=== PATIENT | female | born 1955 | race Two or more races ===

== ENCOUNTER 2017-01-28 14:40 | Emergency (ER) | payer MEDICAID ==
--- NOTE | 2017-01-28 14:59 | ED Physician Chart ---
ED Chief Complaint/HPI - Patient Information Date Seen:: 01/28/17 Time Seen:: 14:52 Chief Complaint:: low back pain History of Present Illness:: 61 yo female had chronic back pain for many years. The pain also radiated to bilateral lower extremities with left side worse than the right side. The patient reported "pinched nerve" in the lumbar spine, but did not know the exact levels. The patient also reported left calf pain due to possible "partial torn tendon". The patient also has urinary frequency and urgency. ED Review of Systems - Review of Systems General/Constitutional: No fever, No chills Skin: No skin lesions Head: No headache Eyes: No loss of vision ENT: No earache Neck: Neck pain Cardio Vascular: No chest pain Pulmonary: No SOB GI: No nausea, No vomiting G/U: No dysuria Musculoskeletal: Back pain ED Past Medical History - Past Medical History Past Medical History: HTN Family History: Diabetes Melitus Social History: Non Smoker, No Alcohol, No Drug Use Surgical History: other (tubal ligation) Family Medical History - Family Member Mother History Unknown: Yes ED Physical Exam - Physical Examination General/Constitutional: Awake, Alert Head: Atraumatic Eyes: PERRL, EOMI Skin: No skin lesions ENMT: Nasal exam nl Neck: Full ROM w/o pain Respiratory: Clear to Auscultation, No Wheeze/Rhonchi/Rales Cardio Vascular: RRR, No murmur, gallop, rubs, NL S1 S2 GI: No tenderness/rebounding/guarding Other comments:: Bilateral CVA percussion tenderness, left side worse than the right side Extremities: normal strength in all extremities Other Extremities comments:: Lumbar region tenderness Neuro/Psych: DTR's symmetric Other Neuro/Psych comments:: Right patellar reflex 2+, left patellar reflex 1+ ED Labs/Radiology/EKG Results - Radiology Results Results: Lumbar spine X ray: degenerative lumbar spine disease with mild L3 on L4 spondylolisthesis. ED Assessment - Assessment General Assessment: 61 yo female with degenerative lumbar spine disease with possible left radiculopathy. She also has UTI without sepsis. Critical Care Time: 45 min Excludes all billable procedures: Yes This condition life threatening/high prob of deterioration: No Assessment/Comments:: CBC, CMP, UA, urine drug screen Lumbar spine X ray Rocephin 1gm x 1 Toradol 30mg iv x 1 Bactrim DS Bid x 5 days F/u PCP with MRI lumbar spine, physical therapy, and pain management ED Septic Shock - . Is Septic Shock (SBP<90, OR Lactate>4 mmol\\L) present?: No ED Reassessment (Disposition) - Reassessment Reassessment Condition:: Improved - Aftercare/Follow up Instructions Aftercare/Follow-Up Instructions:: Counseled pt regarding lab results/diagnosis & need follow up, Refer to Discharge Instructions - Patient Disposition Discharge/Transfer:: Home ED Discharge Plan - Patient Disposition Admit/Discharge/Transfer: PT DISCHARGED HOME Condition at Disposition: Improved Prescriptions: Sulfamethoxazole/TMP [Bactrim Ds] 1 tab PO BID #10 tab Instructions: Urinary Tract Infection, [id number], Lumbosacral Radiculopathy Additional Instructions: Pt. to DC home with prescription. follow-up with primary physician.
[2017-01-28 15:35] LABS: URINE BILIRUBIN NEGATIVE (NEGATIVE); URINE BLOOD NEGATIVE (NEGATIVE); URINE GLUCOSE (UA) NEGATIVE (NEGATIVE); URINE KETONE NEGATIVE (NEGATIVE); URINE PH 5.5 (4.6 - 8.0); URINE PROTEIN NEGATIVE (NEGATIVE); URINE UROBILINOGEN 0.2 E.U./dL (0.2 - 1.0)
[2017-01-28 15:40] LABS: URINE BACTERIA FEW /hpf (NONE SEEN); URINE COLOR YELLOW; URINE EPITHELIAL CELLS OCCASIONAL /lpf (FEW); URINE RBC NONE SEEN /hpf (0-5)
[2017-01-28 15:43] LABS: AMPHETAMINE URINE NEGATIVE (NEGATIVE); BARBITURATES URINE NEGATIVE (NEGATIVE); METHADONE URINE NEGATIVE (NEGATIVE)
[2017-01-28 16:03] LABS: % BASOPHILS 0.7 % (0.0-2.0); % EOSINOPHILS 5.9 % (0.0-5.0); % LYMPHOCYTES 37.6 % (20.0-50.0); % MONOCYTES 7.5 % (2.0-10.0); % NEUTROPHILS 48.3 % (40.0-80.0); HEMATOCRIT 35.4 % (41.0-60); MEAN CORPUSCULAR HEMOGLOBIN 30.9 pg (27.0-31.0); MEAN PLATELET VOLUME 7.8 fl; NEUTROPHILE ABSOLUTE 4.6 Th/cmm (1.8-8.0); PLATELET COUNT 257 Th/cmm (150-400); RED BLOOD COUNT 3.89 Mil/cmm (3.80-5.10); RED CELL DISTRIBUTION WIDTH 12.8 % (11.5-20.0); WHITE BLOOD COUNT 9.6 Th/cmm (4.8-10.8)
[2017-01-28 16:24] LABS: ALB/GLOB RATIO 1.7 (1.0-1.8); BILIRUBIN,TOTAL 0.4 mg/dL (0.3-1.0); BUN/CREATININE RATIO 10.8; CALCIUM SERUM 9.4 mg/dL (8.6-10.3); CARBON DIOXIDE 25.3 mEq/L (21.0-31.0); CREATININE - SERUM 1.3 mg/dL (0.6-1.2); POTASSIUM SERUM 3.6 mEq/L (3.5-5.1)
[2017-01-28 16:29] LABS: ANION GAP 10.3 (7.0-16.0)
[2017-01-28] MEDS ORDERED: Sulfamethoxazole/TMP 800/160mg Tab PO ONE (16:43)
[2017-01-28] MEDS ORDERED: cefTRIAXone 1 GM in Sodium Chloride 0.9% 50 ML IV ONE (17:20)
--- NOTE | 2017-01-29 09:11 | Diagnostic Imaging Report ---
Lumbar spine HISTORY: Pain There diffuse degenerative changes with hypertrophic spur formation noted about the endplates of all lumbar vertebrae. There is narrowing of the L2-3, 34, 45, and L5-S1 disc spaces. There is mild spondylolisthesis of L3 on L4. Marked hypertrophic degenerative changes noted about the posterior elements particularly at L2-3, and L34 on the right and L4-5 on the left. Mild scoliosis of the lumbar spine convexity to the left. IMPRESSION: 1. No acute abnormalities 2. Mild scoliosis along with relatively severe degenerative changes.
== END 2017-01-28 18:47 | disposition home or self-care (01) ==
LOC: ER 14:40
DX: M51.36 Other intervertebral disc degeneration, lumbar region (principal); I10 Essential (primary) hypertension; E11.9 Type 2 diabetes mellitus without complications
CPT/HCPCS: 99291; 96365; 96375; 72100; 36415; 80307; 85025; 81001; 80053; J1885; J0696; Z7502

== ENCOUNTER 2017-07-01 09:06 | Emergency (ER) | payer MEDICAID ==
--- NOTE | 2017-07-01 09:44 | ED Physician Chart ---
ED Chief Complaint/HPI - Patient Information Date Seen:: 07/01/17 Time Seen:: 09:44 Chief Complaint:: Low back pain History of Present Illness:: 61 yo female had urinary burning, urgency and frequency for 1 week. She had 2 painful ulcers on the genital area. She denied having sex with for 10 years. She also had low back pain for 30 years with pain radiating to left lower extremity. She had GERD and gastric ulcers. Allergies:: Allergies Allergy/AdvReac Type Severity Reaction Status Date / Time No Known Allergies Allergy Verified 01/28/17 14:58 Vitals:: Vital Signs - 8 hr 07/01/17 09:12 Temp 97.8 F HR 74 RR 16 BP 128/64 O2 Sat % 94 ED Review of Systems - Review of Systems General/Constitutional: No fever Skin: Skin lesions Head: No headache Eyes: No pain ENT: No nasal drainage Neck: No neck pain Cardio Vascular: No chest pain Pulmonary: No SOB GI: No nausea, No vomiting G/U: Dysuria, Frequency Reconstructive Dentist: Other (genital ulcers) Musculoskeletal: No bone or joint pain Neurological: No focal symptoms ED Past Medical History - Past Medical History Past Medical History: HTN, DM, Asthma/COPD, PUD/GERD, Other (Low back pain) Social History: Non Smoker, No Alcohol, No Drug Use Surgical History: other (bilateral feet surgeries, bilateral tubal ligation) Family Medical History - Family Member Mother History Unknown: Yes ED Physical Exam - Physical Examination General/Constitutional: Awake, Alert Head: Atraumatic Eyes: PERRL Skin: No ecchymosis ENMT: Nasal exam nl Neck: No nuchal rigidity Respiratory: Clear to Auscultation, No Wheeze/Rhonchi/Rales Cardio Vascular: RRR, No murmur, gallop, rubs, NL S1 S2 GI: No tenderness/rebounding/guarding Other comments:: Left CVA tenderness. 2 ulcers within the left labia majora fold Neuro/Psych: Normal motor strength ED Labs/Radiology/EKG Results - Lab Results Results: Abnormal Lab Results 07/01/17 07/01/17 07/01/17 09:30 10:10 10:10 WBC 12.5 H RBC 3.97 Hgb 12.1 Hct 36.0 L MCV 90.7 MCH 30.5 MCHC Differential 33.6 RDW 12.5 Plt Count 295 MPV 6.8 Neutrophils % 58.6 Lymphocytes % 31.3 Monocytes % 5.3 Eosinophils % 3.8 Basophils % 1.0 Sodium 137 Potassium 3.9 Chloride 99 Carbon Dioxide 26.8 Anion Gap 15.1 BUN 31 H Creatinine 1.6 H Est GFR ( Amer) 42.3 Est GFR (Non-Af Amer) 34.9 BUN/Creatinine Ratio 19.4 Glucose 104 Whole Bld Lactic Acid Calcium 9.7 Total Bilirubin 0.4 AST 14 ALT 16 Alkaline Phosphatase 53 Total Protein 7.0 Albumin 4.1 Globulin 2.9 Albumin/Globulin Ratio 1.4 Urine Source RANDOM Urine Color YELLOW Urine Clarity CLEAR Urine pH 6.0 Ur Specific [place] 1.010 Urine Protein NEGATIVE Urine Glucose (UA) NEGATIVE Urine Ketones NEGATIVE Urine Blood NEGATIVE Urine Nitrate NEGATIVE Urine Bilirubin NEGATIVE Urine Urobilinogen 0.2 Ur Leukocyte Esterase SMALL H Urine RBC 0-2 Urine WBC 2-5 Ur Epithelial Cells MODERATE Urine Bacteria FEW 07/01/17 10:10 WBC RBC Hgb Hct MCV MCH MCHC Differential RDW Plt Count MPV Neutrophils % Lymphocytes % Monocytes % Eosinophils % Basophils % Sodium Potassium Chloride Carbon Dioxide Anion Gap BUN Creatinine Est GFR ( Amer) Est GFR (Non-Af Amer) BUN/Creatinine Ratio Glucose Whole Bld Lactic Acid 1.00 Calcium Total Bilirubin AST ALT Alkaline Phosphatase Total Protein Albumin Globulin Albumin/Globulin Ratio Urine Source Urine Color Urine Clarity Urine pH Ur Specific [place] Urine Protein Urine Glucose (UA) Urine Ketones Urine Blood Urine Nitrate Urine Bilirubin Urine Urobilinogen Ur Leukocyte Esterase Urine RBC Urine WBC Ur Epithelial Cells Urine Bacteria ED Assessment - Assessment General Assessment: Leukocytosis UTI Dehydration Genital ulcers Assessment/Comments:: CBC, CMP, HSV 1, 2 IgG UA Rocephin IV NS 1L IV bolus D/c home Ciprofloxacin 500mg bid #14 F/u PCP or return to ER if symptoms worsen ED Septic Shock - . Is Septic Shock (SBP<90, OR Lactate>4 mmol\L) present?: No - <6hrs of presentation: Vital Signs: Vital Signs - 8 hr 07/01/17 09:12 Temp 97.8 F HR 74 RR 16 BP 128/64 O2 Sat % 94 ED Reassessment (Disposition) - Reassessment Reassessment Condition:: Improved - Patient Disposition Discharge/Transfer:: Home ED Discharge Plan - Patient Disposition Prescriptions: Ciprofloxacin HCl [Cipro] 500 mg PO BID 7 Days #14 tab Instructions: Urinary Tract Infection, Dehydration, Adult
[2017-07-01 10:18] LABS: URINE MICROSCOPIC INDICATED? YES; URINE SOURCE RANDOM
[2017-07-01 10:19] LABS: % EOSINOPHILS 3.8 % (0.0-5.0); % LYMPHOCYTES 31.3 % (20.0-50.0); % MONOCYTES 5.3 % (2.0-10.0); % NEUTROPHILS 58.6 % (40.0-80.0); BASOPHILE ABSOLUTE 0.1 Th/cumm (0-0.2); EOSINOPHILE ABSOLUTE 0.5 Th/cmm (0.1-0.4); HEMOGLOBIN 12.1 gm/dL (12-16); LYMPHOCYTE ABSOLUTE 3.9 Th/cmm (1.5-3.0); MEAN CELL VOLUME 90.7 fl (81-100); MEAN CORPUSCULAR HEMOGLOBIN 30.5 pg (27.0-31.0); MEAN CORPUSCULAR HGB CONC 33.6 pg (28.0-36.0); MEAN PLATELET VOLUME 6.8 fl; MONOCYTE ABSOLUTE 0.7 Th/cmm (0.3-1.0); NEUTROPHILE ABSOLUTE 7.3 Th/cmm (1.8-8.0); PLATELET COUNT 295 Th/cmm (150-400); RED BLOOD COUNT 3.97 Mil/cmm (3.80-5.10); RED CELL DISTRIBUTION WIDTH 12.5 % (11.5-20.0)
[2017-07-01 10:25] LABS: WHITE BLOOD COUNT 12.5 Th/cmm (4.8-10.8)
[2017-07-01] MEDS ORDERED: cefTRIAXone 1 GM in Sodium Chloride 0.9% 50 ML IV ONE (10:27)
[2017-07-01 10:29] LABS: URINE BILIRUBIN NEGATIVE (NEGATIVE); URINE BLOOD NEGATIVE (NEGATIVE); URINE COLOR YELLOW; URINE GLUCOSE (UA) NEGATIVE (NEGATIVE); URINE KETONE NEGATIVE (NEGATIVE); URINE LEUKOCYTE ESTERASE SMALL (NEGATIVE); URINE NITRATE NEGATIVE (NEGATIVE); URINE PROTEIN NEGATIVE (NEGATIVE); URINE UROBILINOGEN 0.2 E.U./dL (0.2 - 1.0)
[2017-07-01 10:30] LABS: URINE CLARITY CLEAR (CLEAR)
[2017-07-01 10:36] LABS: URINE BACTERIA FEW /hpf (NONE SEEN); URINE EPITHELIAL CELLS MODERATE /lpf (FEW); URINE RBC 0-2 /hpf (0-5)
[2017-07-01 10:48] LABS: ALB/GLOB RATIO 1.4 (1.0-1.8); ALBUMIN 4.1 gm/dL (3.7-5.3); BILIRUBIN,TOTAL 0.4 mg/dL (0.3-1.0); CALCIUM SERUM 9.7 mg/dL (8.6-10.3); CARBON DIOXIDE 26.8 mEq/L (21.0-31.0); CREATININE - SERUM 1.6 mg/dL (0.6-1.2); GFR AFRICAN-AMERICAN 42.3 ml/min (>90); GFR NON AFRICAN-AMERICAN 34.9 ml/min
[2017-07-01] MEDS ORDERED: Sodium Chloride 0.9% 1,000 ML IV ONE (11:22)
[2017-07-01 11:25] LABS: ANION GAP 15.1 (7.0-16.0); POTASSIUM SERUM 3.9 mEq/L (3.5-5.1)
[2017-07-02 13:17] LABS: HERPES SIMPLEX 1 AB IGG 3.94 index (0.00-0.90); HERPES SIMPLEX 2 AB IGG 8.5 index (0.00-0.90)
== END 2017-07-01 13:40 | disposition home or self-care (01) ==
LOC: ER 09:06
DX: N39.0 Urinary tract infection, site not specified (principal); D72.829 Elevated white blood cell count, unspecified; E86.0 Dehydration; N34.2 Other urethritis; I10 Essential (primary) hypertension; E11.9 Type 2 diabetes mellitus without complications; J45.909 Unspecified asthma, uncomplicated; J44.9 Chronic obstructive pulmonary disease, unspecified; K21.9 Gastro-esophageal reflux disease without esophagitis; Z87.11 Personal history of peptic ulcer disease
CPT/HCPCS: 99285; 96365; 36415; 83605; 85025; 81001; 80053; 87040; 86695; J0696; J7030